=== PATIENT | male | born 2000 | race Two or more races ===

== ENCOUNTER 2018-08-01 12:03 | Emergency (ER) | payer OTHER ==
[2018-08-01] MEDS: ACETAMINOPHEN 325 MG TAB PO (13:36)
== END 2018-08-01 15:57 | disposition home or self-care (01) ==
LOC: FTE 12:03
DX: S92.354A Nondisplaced fracture of fifth metatarsal bone, right foot, initial encounter for closed fracture (principal); J45.909 Unspecified asthma, uncomplicated; F17.210 Nicotine dependence, cigarettes, uncomplicated; X50.1XXA Overexertion from prolonged static or awkward postures, initial encounter; Y92.9 Unspecified place or not applicable
CPT/HCPCS: 29515; 73610-RT; 73630; 99283-25